=== PATIENT | female | born 1955 | race Caucasian/White ===

== ENCOUNTER 2017-06-23 06:37 | Day surgery (SDC) | payer OTHER ==
[2017-06-23] MEDS: CEFAZOLIN 2 GM/50 ML (PMX) 50 ML IVPB (06:00)
[2017-06-23] MEDS: SOD CHLORIDE 0.9% 1,000 ML IV (06:00)
[2017-06-23] MEDS ORDERED: MIDAZOLAM 1 MG/ML 2 ML INJ (06:46)
[2017-06-23] MEDS ORDERED: PROPOFOL 20 ML (06:46)
[2017-06-23] MEDS ORDERED: ROCURONIUM 50 MG INJ (06:46)
[2017-06-23] MEDS ORDERED: NEOSTIGMINE 3 MG/3 ML SYRINGE (06:46)
[2017-06-23] MEDS ORDERED: FENTAnyl 50 MCG/ML VIAL (06:46)
[2017-06-23] MEDS ORDERED: GLYCOPYRROLATE 0.4 MG INJ (06:46)
[2017-06-23] MEDS ORDERED: LIDOCAINE 2% (SDV) 5 ML INJ (06:46)
[2017-06-23] MEDS ORDERED: DEXAMETHASONE 4 MG/ML 1 ML INJ (06:47)
[2017-06-23] MEDS ORDERED: SUCCINYLCHOLINE CHLORIDE 100 MG/5 ML SYG IV (06:48)
[2017-06-23] MEDS ORDERED: CEFAZOLIN 1 GM INJ (06:52)
[2017-06-23] MEDS ORDERED: MEPERIDINE 25 MG INJ IV (07:00)
[2017-06-23] MEDS ORDERED: HYDROmorphONE (0.2 MG/ML) 10ML SYG IV (07:00)
[2017-06-23] MEDS ORDERED: MIDAZOLAM 1 MG/ML 2 ML INJ IV (07:00)
[2017-06-23] MEDS ORDERED: METOCLOPRAMIDE 10 MG INJ (07:00)
[2017-06-23] MEDS ORDERED: OXYCODONE/ACETAMINOPHEN (5/325) TAB PO ×2 (07:00)
[2017-06-23] MEDS ORDERED: FENTAnyl 50 MCG/ML VIAL IV ×2 (07:00)
[2017-06-23] MEDS ORDERED: ATROPINE 1 MG/10 ML SYRINGE IV (07:00)
[2017-06-23] MEDS ORDERED: DIPHENHYDRAMINE 50 MG INJ IV (07:00)
[2017-06-23] MEDS ORDERED: LABETALOL HCL 20MG INJ IV (07:00)
[2017-06-23] MEDS ORDERED: EPHEDrine SULFATE 50 MG/5 ML SYG IV (07:00)
[2017-06-23] MEDS ORDERED: hydrALAzine 20 MG INJ IV (07:00)
[2017-06-23] MEDS ORDERED: morphine (1 MG/ML) 10ML SYRINGE IV ×3 (07:00)
[2017-06-23] MEDS: BUPIVACAINE 0.25% (MPF) 30 ML INJ (08:41)
[2017-06-23] MEDS: HYDROmorphONE (0.2 MG/ML) 10ML SYG IV ×3 (09:17→09:43)
[2017-06-23] MEDS: ONDANSETRON 4 MG INJ IV (09:18)
[2017-06-23] MEDS: HYDROCODONE/APAP (5/325) TAB PO (10:22)
== END 2017-06-23 12:04 | disposition home or self-care (01) ==
LOC: SDS 06:37
DX: K80.10 Calculus of gallbladder with chronic cholecystitis without obstruction (principal); E11.9 Type 2 diabetes mellitus without complications; E03.9 Hypothyroidism, unspecified
CPT/HCPCS: 47562; 88304